=== PATIENT | male | born 2000 | race African-American/Black ===

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

== ENCOUNTER 2019-11-26 19:19 | Emergency (ER) | payer OTHER ==
[~2019-11-26] VITALS: Ht 190.5 cm; Wt 74.8 kg
[~2019-11-26 19:19] MED LIST changes: +PEPCID20 MG PO
[2019-11-26 19:37] VITALS: BP 133/71
[2019-11-26] MEDS ORDERED: CLINDAMYCIN HC300 MG PO (20:56)
== END 2019-11-26 20:56 | disposition home or self-care (01) ==
LOC: ED 19:19
DX: S41.112A Laceration without foreign body of left upper arm, initial encounter (principal); Z79.899 Other long term (current) drug therapy; Z79.2 Long term (current) use of antibiotics; W26.8XXA Contact with other sharp object(s), not elsewhere classified, initial encounter; Y93.89 Activity, other specified; Y92.89 Other specified places as the place of occurrence of the external cause; Y99.8 Other external cause status

== ENCOUNTER 2021-02-07 16:42 | Emergency (ER) | payer OTHER ==
[~2021-02-07] VITALS: Ht 190.5 cm; Wt 77.1 kg
[~2021-02-07 16:42] MED LIST changes: +CLINDAMYCIN HC300 MG PO
[2021-02-07 17:02] VITALS: BP 126/67
== END 2021-02-07 20:18 | disposition left against medical advice (07) ==
LOC: ED 16:42
DX: S81.812A Laceration without foreign body, left lower leg, initial encounter (principal); Z53.21 Procedure and treatment not carried out due to patient leaving prior to being seen by health care provider; W45.8XXA Other foreign body or object entering through skin, initial encounter; Y93.89 Activity, other specified; Y92.89 Other specified places as the place of occurrence of the external cause; Y99.8 Other external cause status

== ENCOUNTER 2022-07-08 15:19 | Emergency (ER) | payer OTHER ==
[~2022-07-08] VITALS: Wt 79.4 kg
[2022-07-08] MEDS ORDERED: IBU800 M2 PO (15:47)
[2022-07-08] MEDS ORDERED: CLINDAMYCIN HC300 MG PO (15:47)
== END 2022-07-08 16:00 | disposition home or self-care (01) ==
LOC: ED 15:19
DX: K02.9 Dental caries, unspecified (principal); Z88.1 Allergy status to other antibiotic agents; Z79.899 Other long term (current) drug therapy